=== PATIENT | female | born 1945 | race Caucasian/White ===

== ENCOUNTER → 2017-04-21 | Outpatient (CLI) | payer BC, MEDICARE ==
[~2017-04-21] MED LIST: ASPIRIN 81M81 MG/TA2 PO; BYETTA 10M600 MCG/SY SC; CALCIUM 500 + D1 TAB PO; CIPRO 500MG TA500 MG PO; FLAGYL500 MG PO; JANUVIA 100MG100 MG PO; LOTREL 10 MG-201 CAP PO; OCUVITE1 TA1 PO; PRILOSEC 20MG20 MG PO; SYNTHROID 0.0.025 MG PO; WELCHOL 625MG625 MG PO; ZETIA 10MG TAB10 MG PO
== END ==
LOC: MC.RAD 13:40
DX: Z12.31 Encounter for screening mammogram for malignant neoplasm of breast (principal)

== ENCOUNTER → 2019-11-23 | Outpatient (CLI) | payer MEDICARE, BC | LOC: COL.VAS 13:11 | DX: G45.9 Transient cerebral ischemic attack, unspecified (principal); G31.9 Degenerative disease of nervous system, unspecified; I67.82 Cerebral ischemia ==

== ENCOUNTER → 2019-11-25 | Outpatient (CLI) | payer MEDICARE, BC | LOC: COL.VAS 11-24 13:15 | DX: G45.9 Transient cerebral ischemic attack, unspecified (principal); I34.0 Nonrheumatic mitral (valve) insufficiency; I87.8 Other specified disorders of veins ==

== ENCOUNTER → 2021-05-10 | Outpatient (CLI) | payer MEDICARE, BC | LOC: MC.RAD 10:57 | DX: Z12.31 Encounter for screening mammogram for malignant neoplasm of breast (principal) ==

== ENCOUNTER → 2023-06-25 | Outpatient (CLI) | payer MEDICARE, BC ==
[~2023-06-25] MED LIST changes: +B-121000 MCG PO; +LASIX 20MG TABL20 MG PO; +PEPCID 20MG TAB20 MG PO; +PLAVIX 75MG TAB75 MG PO; -SYNTHROID 0.0.025 MG PO; +SYNTHROID0.075 MG/T PO; +VICTOZA6 MG/ML SQ; +ZESTRIL 10MG10 MG PO
== END ==
LOC: MHCPAIN 08:20
DX: M47.812 Spondylosis without myelopathy or radiculopathy, cervical region (principal); M48.02 Spinal stenosis, cervical region; E11.9 Type 2 diabetes mellitus without complications; I25.10 Atherosclerotic heart disease of native coronary artery without angina pectoris; I10 Essential (primary) hypertension; Z79.01 Long term (current) use of anticoagulants
CPT/HCPCS: G0463

== ENCOUNTER → 2023-09-02 | Outpatient (CLI) | payer MEDICARE ==
[~2023-09-02] MED LIST changes: +ELIQUIS 5MG PO; +Iohexol 300 - 100 ML VIAL IV ONE; +NEURONTIN100 MG/CAP PO; +NS 100 ML IV SCH; +PRINIVIL10 MG PO; -ZESTRIL 10MG10 MG PO
== END ==
LOC: COL.RAD 08:53
DX: I82.409 Acute embolism and thrombosis of unspecified deep veins of unspecified lower extremity (principal); I26.09 Other pulmonary embolism with acute cor pulmonale
CPT/HCPCS: Q9967